=== PATIENT | male | born 1970 ===

== ENCOUNTER 2018-05-25 12:49 | Emergency (ER) | payer OTHER ==
[2018-05-25 13:41] VITALS: BMI 30.5
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
[2018-05-25 14:46] VITALS: RESP 18; O2SAT 100
--- NOTE | 2018-05-25 16:25 | RAD ---
Date of service: 05/25/2018 PROCEDURE: Cervical Spine Radiographs. HISTORY: Pain. COMPARISON: None. FINDINGS: BONES: Alignment maintained. No fracture. Dens Intact. DISC SPACES: Normal. SOFT TISSUES: Normal. No prevertebral soft tissue swelling. OTHER FINDINGS: None. IMPRESSION: Normal cervical spine radiographs
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
[2018-05-25 20:48] VITALS: BP 124/74; PULSE 82; TEMP 98
== END 2018-05-25 17:21 | disposition home or self-care (01) ==
LOC: ED 12:49
DX: M25.50 Pain in unspecified joint (principal); V49.9XXA Car occupant (driver) (passenger) injured in unspecified traffic accident, initial encounter
CPT/HCPCS: 72050; 72110; 96372; 99285; J1885

== ENCOUNTER 2018-11-05 08:44 | Emergency (ER) | payer BC, OTHER ==
[2018-11-05 08:44] VITALS: BMI 30.5
[2018-11-05 09:00] VITALS: RESP 18; TEMP 97.5; O2SAT 96
[2018-11-05] MEDS ORDERED: Sodium Chloride 0.9% 1,000 ML IV STA (09:06)
--- NOTE | 2018-11-05 09:11 | ED PDOC ---
Arrival/HPI - General Chief Complaint: Abdominal Pain Historian: Patient - History of Present Illness Narrative History of Present Illness (Text): 11/05/18 09:08 A 48 year old male, whose past medical history includes fatty liver, presents to the emergency department with a complaint of right sided abdominal pain. Patient reports the pain began last night for which he took Aleve with minimal relief of his symptoms. He states the pain worsened today and describes it as a "ripping" sensation in the right upper quadrant. The patient reports an episode of nausea that has since resolved. He denies fevers, chills, headache, dizziness, chest pain, shortness of breath, dyspnea on exertion, cough, vomiting, diarrhea, back pain, neck pain, urinary/bowel changes, hematuria, dysuria, frequency, or any other complaint. Time/Duration: Other (Last Night) Symptom Onset: Gradual Symptom Course: Worsening Activities at Onset: Rest, Light Context: Home Past Medical History - Provider Review Nursing Documentation Reviewed: Yes - Cardiac Hx Cardiac Disorders: No - Pulmonary Hx Respiratory Disorders: No - Neurological Hx Neurological Disorder: No - HEENT Hx HEENT Disorder: No - Renal Hx Renal Disorder: No - Endocrine/Metabolic Hx Endocrine Disorders: No - Hematological/Oncological Hx Blood Disorders: No - Integumentary Hx Dermatological Disorder: No - Musculoskeletal/Rheumatological Hx Musculoskeletal Disorders: No - Gastrointestinal Hx Gastrointestinal Disorders: Yes Hx Fatty Liver Disease: Yes - Genitourinary/Gynecological Hx Genitourinary Disorders: No - Psychiatric Hx Psychophysiologic Disorder: No Hx Substance Use: No Family/Social History - Physician Review Nursing Documentation Reviewed: Yes Family/Social History: No Known Family HX Smoking Status: Never Smoked Hx Alcohol Use: Yes Frequency of alcohol use: Socially Hx Substance Use: No Allergies/Home Meds Allergies/Adverse Reactions: Allergies No Known Allergies Allergy (Verified 11/05/18 09:00) Review of Systems - Physician Review All systems were reviewed & negative as marked: Yes - Review of Systems Constitutional: absent: Fevers Respiratory: absent: SOB, Cough Cardiovascular: absent: Chest Pain, BARNES Gastrointestinal: Abdominal Pain (right sided ), Nausea. absent: Stool Changes, Diarrhea, Vomiting Genitourinary Male: absent: Dysuria, Frequency, Hematuria, Urinary Output Changes Musculoskeletal: absent: Back Pain, Neck Pain Neurological: absent: Headache, Dizziness Physical Exam Vital Signs Reviewed: Yes Vital Signs Temp Pulse Resp BP Pulse Ox 11/05/18 08:51 97.5 F L 84 18 110/75 96 Temperature: Hypothermic Blood Pressure: Normal Pulse: Regular Respiratory Rate: Normal Appearance: Positive for: Well-Appearing, Non-Toxic, Comfortable Pain Distress: None Mental Status: Positive for: Alert and Oriented X 3 - Systems Exam Head: Present: Atraumatic, Normocephalic Pupils: Present: PERRL Extroacular Muscles: Present: EOMI Conjunctiva: Present: Normal Mouth: Present: Moist Mucous Membranes Neck: Present: Normal Range of Motion Respiratory/Chest: Present: Clear to Auscultation, Good Air Exchange. No: Respiratory Distress, Accessory Muscle Use Cardiovascular: Present: Regular Rate and Rhythm, Normal S1, S2. No: Murmurs Abdomen: Present: Tenderness (Right right sided tenderness. Positive Marie's sign.). No: Distention, Peritoneal Signs, Rebound, Guarding, Mass/Organomegaly Back: Present: Normal Inspection. No: CVA Tenderness (no right sided CVA tenderness or flank pain. ) Upper Extremity: Present: Normal Inspection. No: Cyanosis, Edema Lower Extremity: Present: Normal Inspection. No: Edema Neurological: Present: GCS=15, CN II-XII Intact, Speech Normal Skin: Present: Warm, Dry, Normal Color. No: Rashes Psychiatric: Present: Alert, Oriented x 3, Normal Insight, Normal Concentration Medical Decision Making ED Course and Treatment: 11/05/18 09:12 Impression: A 48 year old male presents to the emergency department with a complaint of worsening right sided abdominal pain that began last night. Plan: -- EKG -- Abdomen/Pelvis CT -- Urinalysis -- Labs -- Toradol --Reglan --IV Fluids --Morphine --Reassess and disposition Progress Notes: 11/05/18 11:32 Patient reevaluated and feels the same. Morphine ordered. Labs reviewed with no evidence of leukocytosis or electrolyte abnormalities. CT a/p reveals fatty liver with no evidence of obstruction, inflammation or acute intraabdominal pathology. Patient updated on findings and will follow up with his PCP and retail financial analyst - Lab Interpretations Lab Results: 11/05/18 09:05 11/05/18 09:32 Lab Results 11/05/18 09:32: Sodium 139, Chloride 108 H, Potassium 4.3, Carbon Dioxide 24, Anion Gap 11, BUN 15, Creatinine 0.8, Est GFR ( Amer) > 60, Est GFR (Non- Af Amer) > 60, Random Glucose 111 H, Calcium 9.0, Total Bilirubin 0.6, AST 52, ALT 68 H, Alkaline Phosphatase 117, Total Protein 7.8, Albumin 4.3, Globulin 3.5, Albumin/Globulin Ratio 1.2, Lipase 100 11/05/18 09:25: pO2 55, VBG pH 7.38, VBG pCO2 42.0, VBG HCO3 24.8, VBG Total CO2 26.1, VBG O2 Sat (Calc) 94.2 H, VBG Base Excess -0.4 L, VBG Potassium 4.1, Sodium 137.0, Chloride 109.0 H, Glucose 112 H, Lactate 1.0, FiO2 21.0, Venous Blood Potassium 4.1 11/05/18 09:05: WBC 5.5, RBC 4.95, Hgb 15.0, Hct 43.7, MCV 88.3, MCH 30.3, MCHC 34.3, RDW 12.4, Plt Count 258, MPV 8.9, Neut % (Auto) 49.0 L, Lymph % (Auto) 43.2 H, [place] % (Auto) 6.3 H, Eos % (Auto) 1.3 L, Baso % (Auto) 0.2, Lymph # (Auto) 2.4, [place] # (Auto) 0.4, Eos # (Auto) 0.1, Baso # (Auto) 0.01, Absolute Neuts (auto) 2.71 I have reviewed the lab results: Yes - RAD Interpretation Narrative RAD Interpretations (Text): PROCEDURE: CT Abdomen and Pelvis with contrast Dictator : Rashawn Russell MD Report Date : 11/05/2018 11:06:42 IMPRESSION: Fatty liver. - EKG Interpretation EKG Interpretation (Text): 11/05/18 09:41: EKG read and interpreted by me shows NSR at [address] elevations. Borderline QT interval. Interpreted by ED Physician: Yes Type: 12 lead EKG - Medication Orders Current Medication Orders: Sodium Chloride (Sodium Chloride 0.9%) 1,000 mls @ 999 mls/hr IV .Q1H1M STA Stop: 11/05/18 10:06 Ketorolac Tromethamine (Toradol) 30 mg IVP STAT STA Stop: 11/05/18 09:07 Metoclopramide HCl (Reglan) 10 mg IVP STAT STA Stop: 11/05/18 09:07 - Scribe Statement The provider has reviewed the documentation as recorded by the Scribe Elli Beyer Provider Scribe Attestation: All medical record entries made by the Scribe were at my direction and personally dictated by me. I have reviewed the chart and agree that the record accurately reflects my personal performance of the history, physical exam, medical decision making, and the department course for this patient. I have also personally directed, reviewed, and agree with the discharge instructions and disposition. Disposition/Present on Arrival - Present on Arrival Any Indicators Present on Arrival: No History of DVT/PE: No History of Uncontrolled Diabetes: No Urinary Catheter: No History of Decub. Ulcer: No History Surgical Site Infection Following: None - Disposition Have Diagnosis and Disposition been Completed?: Yes Diagnosis: Abdominal pain Disposition: HOME/ ROUTINE Disposition Time: 11:41 Patient Plan: Discharge Condition: STABLE Discharge Instructions (ExitCare): Acute Abdomen (Belly Pain), Adult (DC), Flank Pain (DC) Print Language: SAMI Additional Instructions: All medical record entries made by the Scribe were at my direction and personally dictated by me. I have reviewed the chart and agree that the record accurately reflects my personal performance of the history, physical exam, medical decision making, and the department course for this patient. I have also personally directed, reviewed, and agree with the discharge instructions and disposition. Please follow up with the retail financial analyst in 1-2 weekS Please take medication as prescribed Prescriptions: Ondansetron ODT [Zofran ODT] 4 mg PO Q6H #6 odt Referrals: Adam Hazel MD [Medical Doctor] - Follow up with primary Forms: [employer] (Persian), WORK NOTE
[2018-11-05 09:37] LABS: VENOUS BLOOD GAS BASE EXCESS -0.4 mmol/L (0.0-2.0); VENOUS BLOOD GAS PO2 55 mm/Hg (30-55); VENOUS BLOOD PH 7.38 (7.32-7.43)
[2018-11-05 09:40] LABS: BASO # 0.01 K/mm3 (0.0-2.0); BASO % 0.2 % (0.0-3.0); EOS # 0.1 (0.0-0.7); EOS % 1.3 % (1.5-5.0); LYMPH # 2.4 (1.2-3.4); LYMPH % 43.2 % (22.0-35.0); MEAN CELL VOLUME 88.3 fl (80.0-105.0); MEAN CORPUSCULAR HEMOGLOBIN 30.3 pg (25.0-35.0); MEAN CORPUSCULAR HGB CONC 34.3 g/dl (31.0-37.0); MEAN PLATELET VOLUME 8.9 fl (7.0-11.0); MONO # 0.4 (0.1-0.6); MONO % 6.3 % (1.0-6.0); RBC 4.95 10^6/uL (3.5-6.1); RED CELL DISTRIBUTION WIDTH 12.4 % (11.5-14.5); WHITE BLOOD COUNT 5.5 10^3/uL (4.5-11.0)
[2018-11-05 09:58] LABS: ALB/GLOB RATIO 1.2 (1.1-1.8); ALBUMIN 4.3 g/dL (3.0-4.8); ALT/SGPT 68 U/L (7-56); AST/SGOT 52 U/L (17-59); BLOOD UREA NITROGEN 15 mg/dL (7-21); GFR NON-AFRICAN AMERICAN > 60; LIPASE 100 U/L (23-300)
[2018-11-05] MEDS ORDERED: Morphine 4 mg/ml ISec IVP STA (11:01)
--- NOTE | 2018-11-05 11:10 | CT ---
Date of service: 11/05/2018 PROCEDURE: CT Abdomen and Pelvis with contrast HISTORY: R sided abdominal pain COMPARISON: None. TECHNIQUE: Contrast dose: Radiation dose: Total exam DLP = 1012.79 mGy-cm. This CT exam was performed using one or more of the following dose reduction techniques: Automated exposure control, adjustment of the mA and/or kV according to patient size, and/or use of iterative reconstruction technique. FINDINGS: LOWER THORAX: Unremarkable. LIVER: Fatty liver. No gross lesion or ductal dilatation. GALLBLADDER AND BILE DUCTS: Unremarkable. PANCREAS: Unremarkable. No gross lesion or ductal dilatation. SPLEEN: Unremarkable. ADRENALS: Unremarkable. No mass. KIDNEYS AND URETERS: Unremarkable. No hydronephrosis. No solid mass. VASCULATURE: Unremarkable. No aortic aneurysm. No aortic atherosclerotic calcification or mural plaque present. BOWEL: Unremarkable. No obstruction. No gross mural thickening. APPENDIX: Normal appendix. PERITONEUM: Unremarkable. No free fluid. No free air. LYMPH NODES: Unremarkable. No enlarged lymph nodes. BLADDER: Unremarkable. REPRODUCTIVE: Unremarkable. BONES: No acute fracture. OTHER FINDINGS: None. IMPRESSION: Fatty liver.
[2018-11-05 11:49] VITALS: BP 136/74; PULSE 79
[2018-11-05 12:01] LABS: PH,URINE 6.5 (4.7-8.0); URINE BILIRUBIN NEGATIVE (NEGATIVE); URINE BLOOD NEGATIVE (NEGATIVE); URINE GLUCOSE (UA) NEGATIVE (NEGATIVE); URINE LEUKOCYTE ESTERASE NEGATIVE Leu/uL (NEGATIVE); URINE PROTEIN NEGATIVE mg/dL (<30 mg/dL); URINE UROBILINOGEN 0.2 E.U./dL (<1 E.U./dL)
[2018-11-05 12:02] LABS: URINE APPEARANCE CLEAR (CLEAR); URINE COLOR YELLOW (YELLOW)
--- NOTE | 2018-11-05 13:00 | CARD ---
APPROVED REPORT Date of service: 11/05/2018 EKG Measurement Heart [id number] <Conclusion> Normal sinus rhythm Normal ECG
== END 2018-11-05 11:55 | disposition home or self-care (01) ==
LOC: ED 08:44
DX: R10.11 Right upper quadrant pain (principal)
CPT/HCPCS: 74177; 80053; 81003; 82803; 83690; 85025; 93005; 96361; 96374; 96375; 99283; J1885; J2270; J2765; J7030; Q9967